=== PATIENT | male | born 1965 | race Caucasian/White ===

== ENCOUNTER 2020-07-21 03:53 | Observation (INO) | payer OTHER ==
[~2020-07-21] VITALS: Ht 190.5 cm; Wt 90.7 kg
[2020-07-21 04:12] VITALS: BP 165/96
[2020-07-21] MEDS ORDERED: METFORMIN HCL500 M3 PO (04:15)
[2020-07-21 04:26] LABS: HEMATOCRIT 52.3 % (42.0-52.0); HEMOGLOBIN 17.9 gm/dL (14.0-18.0); MCHC 34.3 g/dL (28.0-37.0); MCV 90.3 fL (80.0-100.0); MPV 7.2 fl. (7.2-11.1); NUCLEATED RBCS 0 /100WBC; PLATELET COUNT* 261 thou/uL (150-400); RBC 5.79 mil/uL (4.50-6.00); RDW-CV 13.2 % (10.5-14.5); WBC 18.9 thou/uL (4.0-11.0)
[2020-07-21 04:35] LABS: CALCIUM 8.7 mg/dL (8.5-10.1); CREATININE 1.2 mg/dL (0.6-1.3); POTASSIUM 4.2 mmol/L (3.5-5.1)
[2020-07-21 04:45] LABS: ALBUMIN 3.7 g/dL (3.4-5.0); TOTAL BILIRUBIN 1.5 mg/dL (<0.1-1.0); TOTAL PROTEIN 8.4 g/dL (6.4-8.2)
[2020-07-21 05:27] LABS: ABSOLUTE LYMPHOCYTES 1.7 thou/uL (0.8-5.3); ABSOLUTE MONOCYTES 0.9 thou/uL (0.0-1.2); ABSOLUTE NEUTROPHILS 16.3 thou/uL (1.6-8.1); ANISOCYTOSIS 1+; PLATELET ESTIMATE ADEQUATE; POIKILOCYTOSIS 1+
[2020-07-21 15:40] VITALS: BP 108/80
[2020-07-21 20:51] VITALS: BP 118/87
[2020-07-22] VITALS: BP 105/72
[2020-07-22 04:00] VITALS: BP 112/72
[2020-07-22 08:00] VITALS: BP 112/77
--- NOTE | 2020-07-22 11:04 | EKG ---
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
[2020-07-22 11:30] VITALS: BP 106/77
[2020-07-22 16:00] VITALS: BP 143/53
--- NOTE | 2020-07-26 08:15 | OP ---
[address] [address] OPERATIVE REPORT Name: FUNESMASOOD Room: [address] Fara Pope#: [id number] Admission: 07/21/20 Attend Phys: Perry Crockett DO Discharge: 07/22/20 Date of : 67 Report #: [id number] THIS REPORT FOR: //name// cc: RESHMA Yadav family physician/PCP RESHMA - Vicenta family physician/PCP ~ CC: Perry Crockett [facility] physician/PCP DICTATED BY: Alexandr Diane DO DATE OF SERVICE: 07/21/2020 PREOPERATIVE DIAGNOSIS: Acute appendicitis. POSTOPERATIVE DIAGNOSIS: Perforated appendicitis with fecal peritonitis. SURGEON: Perry Crockett DO OR RN: Alexandr Diaen DO, PGY-5; Tim Carney DO, PGY-1 and Christi Reed MS3. OPERATION PERFORMED: Laparoscopic appendectomy. ANESTHESIA: General, local. ESTIMATED BLOOD LOSS: 30 mL. SPECIMEN: Appendix. COMPLICATIONS: None. FINDINGS: Grossly perforated appendix with feculent purulent output and multiple adhesed small bowel loops with fibrinous exudate. INDICATIONS: The patient is a 54-year-old male who presented to the Emergency Department with complaints of right lower quadrant pain. On physical exam, he had guarding and right lower quadrant tenderness. On CT, he was found to have appendicitis with significant inflammation in the right lower quadrant. He was informed of the risks and benefits of laparoscopic appendectomy with risks including but not limited to bleeding, infection, bowel injury, bladder injury. He understood these risks and decided to proceed with surgery. DESCRIPTION OF PROCEDURE: After informed consent was obtained, the patient was brought to the operating room and placed in supine position. SCDs were on and running. Preoperative antibiotics were given. General anesthesia was administered with an ET tube. The patient was prepped and [place] [address] OPERATIVE REPORT Name: MASOOD FUNES Room: [address] Fara Pope#: [id number] Admission: 07/21/20 Attend Phys: Perry Crockett DO Discharge: 07/22/20 Date of : 67 Report #: [id number] sterile fashion. A surgical pause was held to confirm proper patient and procedure. A supraumbilical vertical incision 2 cm in length was made with an 11 blade. Dissection was carried down to the fascia using cautery. Fascia was incised using cautery and elevated with 2 Jordan clamps. Peritoneum was bluntly entered using a Angie. Stay sutures were placed at the superior and inferior aspect of the fascial incision using 0 Vicryl. Alberto 5 mm trocar was inserted into the abdomen. The abdomen was insufflated. Camera was introduced. There was immediately small bowel adhesed to the anterior abdominal wall just adjacent to the camera port. These all swept down with increased pneumoperitoneum. There was obvious inflammation in the right lower quadrant with multiple small bowel loops adhesed and fibrinous exudate throughout the right lower quadrant and pelvis. At this point, the patient was positioned head down and left side down. A 5 mm port was placed in the suprapubic region under direct visualization. A 12 mm port was placed in the left lower quadrant under direct visualization. Laparoscopic Hedy and suction oil distributor were used to bluntly sweep away the small bowel loops and fibrinous exudate which the adhesions broke away with minimal effort. The cecum was identified. The appendix was located and identified in the retrocecal and right pericolic gutter position and was curled on itself. It appeared frankly necrotic. A combination of Harmonic ultrasonic dissection as well as blunt dissection was used to take down the lateral attachments of the cecum. This allowed the appendix to be flipped out of its retrocecal position. The base of the appendix was then identified in the mid appendix. There was a perforation that had grossly feculent output. Once the base of the appendix was identified, [place] dissector was used to create a window through the mesoappendix to accommodate the stapler. A 45 mm CovMyCrowd purple load stapler DARIA was fired across the base of the appendix, right at the cecum. The Harmonic scalpel was then used to take down the mesoappendix. Once completely detached, the appendix was placed within an EndoCatch bag. A portion of the appendix had fractured and this fractured portion was also placed within the EndoCatch bag. This was placed aside. Suction oil distributor was then used to thoroughly irrigate the right lower quadrant and the pelvis. A 15-Vietnamese MARJAN drain was placed in the right pericolic gutter along the suprapubic incision. This trocar was removed. The 12 mm trocar in the left lower quadrant was removed. This was closed with 0 Vicryl using a PMI device. The abdomen was desufflated. The staple line was inspected and hemostatic and intact. There was no hemorrhage in the right lower quadrant or the pelvis. The abdomen was desufflated. Specimen was removed. The previous stay sutures were elevated. Two additional mbdulv-gb-gkpne using 0 Vicryl were used to close the fascia. The 12 mm and Alberto entry point were both closed in layered fashion using 3-0 Vicryl, 4-0 Monocryl. The drain was secured using a 2-0 nylon. Wounds were cleansed and dressed with Dermabond. The patient was emerged from anesthesia and transferred to the PACU in stable condition. All counts were correct. <ELECTRONICALLY SIGNED> By: Perry Crockett DO 07/26/2015 33 Amatilde Crockett DO /nt
--- NOTE | 2020-07-26 09:08 | PATH ---
[address] [address] PATHOLOGY RPT PROCEDURE Name: CARDOSOINOCENTE Room: [address] Fara Pope#: [id number] Admission: 07/21/20 Date of : 67 Discharge: 07/22/20 Report #: [id number] Path Case #: [id number] [facility] Accession Number: [id number] . 01 Material submitted: . appendix - APPENDIX . 01 Clinical history: . ACUTE APPENDICITIS PERFORATED APPENDIX WITH PURULANT PERITONITIS . 02 Diagnosis: Appendix: - Acute gangrenous appendicitis, periappendicitis and serositis with evidence of perforation. . (ABDIEL:mmaneesh; 07/25/2020) [facility] 07/25/2020 1633 Local . 02 Electronically signed: . Josh Hammer MD, Pathologist NPI- [id number] . 01 Gross description: . The specimen is received in formalin, labeled "Inocente Cardoso, appendix". Received is a vermiform appendix measuring 11.2 cm in length by up to 1.2 cm in diameter with a moderate amount of attached mesoappendix. The serosal surface is dusky bullock-brown and shaggy in appearance with an area of perforation measuring 0.3 cm, located 3.2 cm from the proximal margin. The surgical margin is closed with a line of kamryn. The kamryn are removed and the new margin is inked black. Sectioning reveals a patent to dilated lumen filled with fecal material. 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 A1 proximal margin and bisected tip A2 entire area of perforation A3 additional cross sections of appendix. (CAA; 07/23/2020) QAC/QAC 07/23/2020 1827 Local . 02 Pathologist provided ICD-10: K35.80, K65.8 . 02 CPT . 595087 Specimen Comment: A courtesy copy of this report has been sent to [phone] Specimen Comment: Report sent to Performed at: 01 [place] [address] PATHOLOGY RPT PROCEDURE Name: INOCENTE CARDOSO Room: [address] Fara Pope#: [id number] Admission: 07/21/20 Date of : 67 Discharge: 07/22/20 Report #: [id number] Path Case #: [id number] [address], [place], [place] [id number] MD Virgilio Hermosillo MD Phone: [phone] Performed at: 02 [facility] [address], [place], [place] [id number] MD Josh Hammer MD Phone: [phone]
== END 2020-07-22 17:00 | disposition left against medical advice (07) ==
LOC: M.ERS 03:53 → M.TBA-ER 08:18 → M.ORTHSURG 20:43
PROVIDERS: Emergency Medicine; ADMIT Surgery; ATTEND Surgery
DX: K35.32 Acute appendicitis with perforation, localized peritonitis, and gangrene, without abscess (principal); E11.9 Type 2 diabetes mellitus without complications; F17.210 Nicotine dependence, cigarettes, uncomplicated; Z20.828 Contact with and (suspected) exposure to other viral communicable diseases; Z79.84 Long term (current) use of oral hypoglycemic drugs

== ENCOUNTER 2020-07-26 08:21 | Inpatient (IN) | payer OTHER ==
[~2020-07-26] VITALS: Ht 190.5 cm; Wt 90.7 kg
[~2020-07-26 08:21] MED LIST: METFORMIN HCL500 M3 PO
[2020-07-26 08:30] VITALS: BP 129/101
[2020-07-26 08:49] LABS: ABSOLUTE BASOPHILS 0.1 thou/uL (0.0-0.2); ABSOLUTE EOSINOPHILS 0.2 thou/uL (0.0-0.7); ABSOLUTE LYMPHOCYTES 1.6 thou/uL (0.8-5.3); ABSOLUTE MONOCYTES 1.2 thou/uL (0.0-1.2); ABSOLUTE NEUTROPHILS 8.7 thou/uL (1.6-8.1); BASOPHILS 0.6 %; EOSINOPHILS 1.3 %; LYMPHOCYTES 13.9 %; MCH 30.6 pg (26.0-34.0); MCHC 34.6 g/dL (28.0-37.0); MCV 88.4 fL (80.0-100.0); MONOCYTES 10.3 %; MPV 7.1 fl. (7.2-11.1); NUCLEATED RBCS 0 /100WBC; PLATELET COUNT* 476 thou/uL (150-400); POLYS 73.9 %; RBC 5.89 mil/uL (4.50-6.00); RDW-CV 13.5 % (10.5-14.5); WBC 11.8 thou/uL (4.0-11.0)
[2020-07-26 08:55] LABS: CALCIUM 9.1 mg/dL (8.5-10.1); CREATININE 1.3 mg/dL (0.6-1.3)
[2020-07-26 08:59] LABS: ALBUMIN 2.8 g/dL (3.4-5.0); TOTAL BILIRUBIN 0.6 mg/dL (<0.1-1.0); TOTAL PROTEIN 8.3 g/dL (6.4-8.2)
[2020-07-26 09:04] LABS: POTASSIUM 2.8 mmol/L (3.5-5.1)
[2020-07-26 15:40] VITALS: BP 135/91
[2020-07-26 15:54] LABS: URINE BILIRUBIN NEGATIVE (Negative); URINE BLOOD NEGATIVE (Negative); URINE CLARITY CLEAR; URINE COLOR YELLOW; URINE GLUCOSE-RANDOM 1+ (Negative); URINE KETONES TRACE (Negative); URINE LEUKOCYTES-REFLEX NEGATIVE (Negative); URINE NITRITE-REFLEX NEGATIVE (Negative); URINE PROTEIN NEGATIVE (Negative); URINE SPECIFIC GRAVITY 1.025 (1.005-1.030); URINE UROBILINOGEN 0.2 E.U./dl (0.2-1.0)
[2020-07-26 17:00] VITALS: BP 136/82
[2020-07-26 17:12] VITALS: BP 136/88
[2020-07-26 19:30] VITALS: BP 139/85; BP 142/90
[2020-07-27 04:55] LABS: HEMATOCRIT 45.2 % (42.0-52.0); MCH 30.5 pg (26.0-34.0); MCHC 34.7 g/dL (28.0-37.0); MCV 87.9 fL (80.0-100.0); MPV 6.9 fl. (7.2-11.1); RBC 5.14 mil/uL (4.50-6.00); RDW-CV 13.4 % (10.5-14.5)
[2020-07-27 04:58] LABS: HEMOGLOBIN 15.7 gm/dL (14.0-18.0)
[2020-07-27 05:11] LABS: POTASSIUM 2.9 mmol/L (3.5-5.1)
[2020-07-27 07:54] VITALS: BP 140/87
[2020-07-27 14:55] LABS: AMP/METHAMP POSITIVE (Negative); BARBITURATES Negative (Negative); BENZODIAZEPINES Negative (Negative); COCAINE Negative (Negative); METHADONE Negative (Negative); OPIATES POSITIVE (Negative); PCP Negative (Negative); THC POSITIVE (Negative)
[2020-07-27 19:36] VITALS: BP 126/80
[2020-07-28 03:40] LABS: HEMATOCRIT 44.8 % (42.0-52.0); HEMOGLOBIN 15.3 gm/dL (14.0-18.0); MCH 30.6 pg (26.0-34.0); MCHC 34.1 g/dL (28.0-37.0); MCV 89.8 fL (80.0-100.0); MPV 6.9 fl. (7.2-11.1); RBC 4.99 mil/uL (4.50-6.00); RDW-CV 13.5 % (10.5-14.5); WBC 10.8 thou/uL (4.0-11.0)
[2020-07-28 04:07] LABS: CALCIUM 8.3 mg/dL (8.5-10.1); MAGNESIUM 1.9 mg/dL (1.8-2.4); PHOSPHORUS* 2.3 mg/dL (2.5-4.9); POTASSIUM 3.4 mmol/L (3.5-5.1)
[2020-07-28 08:00] VITALS: BP 128/94
[2020-07-28 16:00] VITALS: BP 143/100
[2020-07-28 20:00] VITALS: BP 131/89
[2020-07-29 08:10] VITALS: BP 144/90
[2020-07-29 09:31] LABS: ABSOLUTE BASOPHILS 0.1 thou/uL (0.0-0.2); ABSOLUTE EOSINOPHILS 0.2 thou/uL (0.0-0.7); ABSOLUTE LYMPHOCYTES 2.2 thou/uL (0.8-5.3); ABSOLUTE MONOCYTES 0.6 thou/uL (0.0-1.2); ABSOLUTE NEUTROPHILS 8.8 thou/uL (1.6-8.1); BASOPHILS 0.6 %; EOSINOPHILS 1.6 %; HEMATOCRIT 43.8 % (42.0-52.0); HEMOGLOBIN 15.1 gm/dL (14.0-18.0); LYMPHOCYTES 18.2 %; MCH 30.6 pg (26.0-34.0); MCHC 34.4 g/dL (28.0-37.0); MCV 89.1 fL (80.0-100.0); MONOCYTES 5.1 %; NUCLEATED RBCS 0 /100WBC; PLATELET COUNT* 488 thou/uL (150-400); POLYS 74.5 %; RBC 4.92 mil/uL (4.50-6.00); RDW-CV 13.2 % (10.5-14.5); WBC 11.8 thou/uL (4.0-11.0)
[2020-07-29 09:43] LABS: CALCIUM 8.4 mg/dL (8.5-10.1); CREATININE 0.9 mg/dL (0.6-1.3); MAGNESIUM 1.9 mg/dL (1.8-2.4); PHOSPHORUS* 2.5 mg/dL (2.5-4.9); POTASSIUM 4.1 mmol/L (3.5-5.1)
[2020-07-29 16:00] VITALS: BP 133/88
[2020-07-29 20:00] VITALS: BP 135/89
[2020-07-30 05:19] LABS: HEMATOCRIT 44.8 % (42.0-52.0); HEMOGLOBIN 15.1 gm/dL (14.0-18.0); MCH 30.5 pg (26.0-34.0); MCHC 33.8 g/dL (28.0-37.0); MCV 90.2 fL (80.0-100.0); MPV 7.1 fl. (7.2-11.1); RBC 4.97 mil/uL (4.50-6.00); RDW-CV 13.3 % (10.5-14.5); WBC 12.2 thou/uL (4.0-11.0)
[2020-07-30 05:37] LABS: POTASSIUM 3.8 mmol/L (3.5-5.1)
[2020-07-30 08:15] VITALS: BP 124/81
[2020-07-30 16:30] VITALS: BP 144/87
[2020-07-30 20:09] VITALS: BP 141/95
[2020-07-31 07:40] VITALS: BP 121/82
[2020-07-31 16:29] VITALS: BP 120/78
[2020-07-31 20:00] VITALS: BP 136/87
[2020-08-01] VITALS (12 sets, daily range): BP systolic 126–153; BP diastolic 70–99
[2020-08-01 03:49] LABS: ABSOLUTE BASOPHILS 0.2 thou/uL (0.0-0.2); ABSOLUTE EOSINOPHILS 0.2 thou/uL (0.0-0.7); ABSOLUTE LYMPHOCYTES 2.5 thou/uL (0.8-5.3); ABSOLUTE MONOCYTES 0.6 thou/uL (0.0-1.2); ABSOLUTE NEUTROPHILS 5.8 thou/uL (1.6-8.1); BASOPHILS 1.6 %; EOSINOPHILS 1.9 %; HEMATOCRIT 43.1 % (42.0-52.0); HEMOGLOBIN 14.2 gm/dL (14.0-18.0); LYMPHOCYTES 26.9 %; MCH 29.8 pg (26.0-34.0); MCHC 32.9 g/dL (28.0-37.0); MCV 90.5 fL (80.0-100.0); MONOCYTES 6.9 %; MPV 7.2 fl. (7.2-11.1); NUCLEATED RBCS 0 /100WBC; POLYS 62.7 %; RBC 4.76 mil/uL (4.50-6.00); RDW-CV 13.3 % (10.5-14.5); WBC 9.3 thou/uL (4.0-11.0)
[2020-08-01 04:09] LABS: ALBUMIN 2.4 g/dL (3.4-5.0); CALCIUM 8.3 mg/dL (8.5-10.1); CREATININE 1.2 mg/dL (0.6-1.3); PHOSPHORUS* 3.1 mg/dL (2.5-4.9); POTASSIUM 3.7 mmol/L (3.5-5.1); TOTAL BILIRUBIN 0.3 mg/dL (<0.1-1.0); TOTAL PROTEIN 6.6 g/dL (6.4-8.2)
[2020-08-01 04:13] LABS: PLATELET COUNT* 572 thou/uL (150-400)
[2020-08-01 10:26] LABS: APTT 25.9 Seconds (25.0-31.3); PROTIME 10.8 Seconds (9.20-11.50)
[2020-08-01] MEDS ORDERED: AUGMENTIN 875-1 EACH PO (10:43)
== END 2020-08-01 17:19 | disposition home or self-care (01) | DRG 388 ==
LOC: M.ERS 08:21 → M.TBA-ER 09:42 → M.3W 16:58
PROVIDERS: Family Medicine; Surgery; ADMIT Surgery; ATTEND Surgery
PROC: 0D9670Z Drainage of Stomach with Drainage Device, Via Natural or Artificial Opening (ICD-10-PCS; principal; 2020-08-01)
DX: K56.609 Unspecified intestinal obstruction, unspecified as to partial versus complete obstruction (principal); K65.1 Peritoneal abscess; K56.7 Ileus, unspecified; E87.6 Hypokalemia; K59.00 Constipation, unspecified; E11.9 Type 2 diabetes mellitus without complications; Z20.828 Contact with and (suspected) exposure to other viral communicable diseases; Z79.84 Long term (current) use of oral hypoglycemic drugs; Z90.49 Acquired absence of other specified parts of digestive tract